=== PATIENT | male | born 1995 | race African-American/Black ===

== ENCOUNTER 2017-10-31 17:29 | Emergency (ER) | payer MEDICAID ==
[~2017-10-31] VITALS: Ht 170.2 cm; Wt 70.3 kg
[~2017-10-31 17:29] MED LIST: ACETAMINOPHEN-1 EAC1 PO; ALBUTEROL SULF8.5 GM INH; AMOXICILLI200 MG/5 M PO; AMOXICILLIN500 MG ORAL; AUGMENTIN 875-1 EAC1 ORAL; AZITHROMYCIN250 MG ORAL; CONCERTA18 MG PO; IBUPROFEN600 MG ORAL; IBUPROFEN800 M1 PO; IBUPROFEN800 MG PO; KEFLEX500 MG ORAL; KEFLEX500 MG PO; NKM; PROMETHAZINE-D118 ML ORAL
[2017-10-31 17:38] VITALS: BP 121/71
--- NOTE | 2017-10-31 17:58 | Emergency Room Report ---
History of Present Illness General Chief Complaint: Upper Respiratory Illness Source: Patient Present Illness HPI 22-year-old male presents emergency department complaining of intermittent dry cough with some wheezes since yesterday. Patient reports history of bronchitis usually with changes of season. Patient states that he lost his inhaler. Patient denies fevers, chills, sputum production, sore throat, neck stiffness or neck pain. Allergies: Coded Allergies: No Known Allergies (Unverified , 07/22/12) Patient History Past Medical History: see triage record Past Surgical History: none Pertinent Family History: none Immunizations: UTD Reviewed Nursing Documentation: PMH: Agreed; PSxH: Agreed Nursing Documentation-PMH Past Medical History: No Stated History Hx Neurological Problems: No Review of Systems All Other Systems: negative except mentioned in HPI Physical Exam Vital Signs Date Time Temp Pulse Resp B/P (MAP) Pulse Ox O2 Delivery O2 Flow Rate FiO2 10/31/17 17:34 98.7 68 20 121/71 98 Room Air 98.8 Sp02 EP Interpretation: reviewed, normal General Appearance: no apparent distress, alert, GCS 15, non-toxic Head: normocephalic, atraumatic Eyes: bilateral eye normal inspection, bilateral eye PERRL ENT: hearing grossly normal, normal voice Neck: full range of motion Respiratory: chest non-tender, lungs clear, normal breath sounds, no wheezing, speaking full sentences Cardiovascular #1: regular rate, rhythm, normal capillary refill Musculoskeletal: back normal, gait/station normal, normal range of motion, non- tender Neurologic: alert, oriented x3, responsive, motor strength/tone normal, sensory intact, speech normal, grossly normal Psychiatric: judgement/insight normal Skin: normal color, no rash, warm/dry, well hydrated Lymphatic: no adenopathy Medical Decision Making PA Attestation Dr. douglas is my supervising Physician whom patient management has been discussed with. Diagnostic Impression: Primary Impression: Acute bronchiolitis, unspecified ER Course 22-year-old male presents emergency department complaining of intermittent dry cough with some wheezes since yesterday. Patient reports history of bronchitis usually with changes of season. Patient states that he lost his inhaler. Patient denies fevers, chills, sputum production, sore throat, neck stiffness or neck pain. Ddx considered but are not limited to URI, pneumonia, PE, strep pharyngitis, meningitis. Vital signs: Pt.is afebrile VS are WNL H&PE are most consistent with bronchitis ORDERS: none required at this time, the diagnosis is clinical ED INTERVENTIONS: None required at this time. DISCHARGE: At this time pt. is stable for d/c to home. Will provide printed patient care instructions, and any necessary prescriptions. Care plan and follow up instructions have been discussed with the patient prior to discharge. Last Vital Signs Date Time Temp Pulse Resp B/P (MAP) Pulse Ox O2 Delivery O2 Flow Rate FiO2 10/31/17 17:38 98.8 68 20 121/71 98 Room Air 98.8 Disposition: HOME, SELF-CARE Condition: Stable Scripts Cetirizine Hcl* (ZYRTEC*) 10 Mg Tablet 10 MG ORAL DAILY for 30 Days, #30 TAB 0 Refills Prov: Clary Shaw 10/31/17 Albuterol Sulfate* (ALBUTEROL SULFATE MDI*) 8.5 Gm Hfa.aer.ad 2 PUFF INH Q4H, #1 INH 2 Refills Prov: Clary Shaw 10/31/17 Patient Instructions: Acute Bronchitis, [id number] Additional Instructions: Take medications as directed. Follow up with a Primary Care Provider in 3-5 days, even if your symptoms have resolved. --Please review list of primary care clinics, if you do not already have a primary care provider Return sooner to ED if new symptoms occur, or current symptoms become worse. - Please note that this Emergency Department Report was dictated using [employer] sheeter technology software, occasionally this can lead to erroneous entry secondary to interpretation by the dictation equipment. Clary Shaw Oct 31, 2017 17:58
[2017-10-31] MEDS ORDERED: ZYRTEC10 MG ORAL (17:59)
[2017-10-31] MEDS ORDERED: ALBUTEROL SULF8.5 GM INH (17:59)
[2017-10-31 18:16] VITALS: BP 121/71
== END 2017-10-31 18:17 | disposition home or self-care (01) ==
LOC: EMR 18:00
DX: J21.9 Acute bronchiolitis, unspecified (principal)
CPT/HCPCS: 99284

== ENCOUNTER 2017-11-19 18:08 | Emergency (ER) | payer MEDICAID ==
[~2017-11-19] VITALS: Ht 170.2 cm; Wt 68.0 kg
[~2017-11-19 18:08] MED LIST changes: +ZYRTEC10 MG ORAL
[2017-11-19 18:57] VITALS: BP 114/72
[2017-11-19] MEDS ORDERED: Bacitracin Oint UD TOPIC ONE ×2 (19:52→20:00)
--- NOTE | 2017-11-19 19:57 | Emergency Room Report ---
History of Present Illness General Chief Complaint: Wound Recheck/Suture Removal Source: Patient Present Illness HPI 22 YO Male presents to the ED c/o sutures that need to be removed from right posterior ear. pt. denies pain. Denies erythema, tenderness, discharge. Patient reports scab formation. Patient denies fevers or chills. Patient is up -to-date with tetanus vaccination. Allergies: Coded Allergies: No Known Allergies (Unverified , 07/22/12) Patient History Past Medical History: see triage record Past Surgical History: none Pertinent Family History: none Immunizations: UTD Reviewed Nursing Documentation: PMH: Agreed; PSxH: Agreed Nursing Documentation-PMH Past Medical History: No Stated History Hx Neurological Problems: No Review of Systems All Other Systems: negative except mentioned in HPI Physical Exam Vital Signs Date Time Temp Pulse Resp B/P (MAP) Pulse Ox O2 Delivery O2 Flow Rate FiO2 11/19/17 18:28 98.2 65 18 114/72 97 Room Air 98.2 Sp02 EP Interpretation: reviewed, normal General Appearance: no apparent distress, alert, GCS 15, non-toxic Head: normocephalic, atraumatic ENT: hearing grossly normal, normal voice, other - healing laceration of the posterior right ear - moderate scabbing noted over sutures, no erythema and no discharge no evidence of infection Respiratory: lungs clear, normal breath sounds, speaking full sentences Cardiovascular #1: regular rate, rhythm Musculoskeletal: back normal, gait/station normal, normal range of motion Neurologic: alert, oriented x3, responsive, motor strength/tone normal, sensory intact, normal gait, speech normal, grossly normal Psychiatric: judgement/insight normal Skin: normal color, no rash, warm/dry, well hydrated, wd healing/no infection noted - healing laceration of the posterior right ear - moderate scabbing noted over sutures, no erythema and no discharge no evidence of infection Lymphatic: no adenopathy Medical Decision Making PA Attestation Dr Hannon is my supervising Physician whom patient management has been discussed with. Diagnostic Impression: Primary Impression: Encounter for removal of sutures Additional Impressions: Encounter for wound re-check Wound healing, delayed ER Course 22 YO Male presents to the ED c/o sutures that need to be removed from right posterior ear. pt. denies pain. Denies erythema, tenderness, discharge. Patient reports scab formation. Patient denies fevers or chills. Patient is up -to-date with tetanus vaccination. Ddx considered but are not limited to laceration, tendon injury, cellulitis, dehiscence. Vital signs: are WNL, pt. is afebrile H&PE are most consistent with: healing laceration of the posterior right ear - moderate scabbing noted over sutures, no erythema and no discharge no evidence of infection. ORDERS: none required at this time, the diagnosis is clinical ED INTERVENTIONS: - 3 Sutures removed. The middle Portion of the laceration seems to still be healing and therefore I felt it was best to leave the sutures in for a few more days. I instructed patient to apply bacitracin once daily and to return in about 3-5 days for evaluation and possibly removing the remaining sutures. DISCHARGE: At this time pt. is stable for d/c to home. Will provide printed patient care instructions, and any necessary prescriptions. Care plan and follow up instructions have been discussed with the patient prior to discharge. Last Vital Signs Date Time Temp Pulse Resp B/P (MAP) Pulse Ox O2 Delivery O2 Flow Rate FiO2 11/19/17 18:57 98.2 78 18 114/72 97 Room Air 98.2 Disposition: HOME, SELF-CARE Condition: Stable Scripts Bacitracin/Polymyxin B Sulfate (BACITRACIN-POLYMYXIN OINTMENT) 28.35 Gm Oint...g. 1 APPLIC TP BID, #28.3 GM Prov: Clary Shaw 11/19/17 Patient Instructions: Wound Check Additional Instructions: Take medications as directed. Return in 3-5 days for re-check and possible removal of remaining sutures. Follow up with a Primary Care Provider in 3-5 days, even if your symptoms have resolved. --Please review list of primary care clinics, if you do not already have a primary care provider Return sooner to ED if new symptoms occur, or current symptoms become worse. - Please note that this Emergency Department Report was dictated using [employer] therapist technology software, occasionally this can lead to erroneous entry secondary to interpretation by the dictation equipment. Clary Shaw Nov 19, 2017 19:57
[2017-11-19] MEDS ORDERED: BACITRACIN-P28.35 GM TP (20:03)
[2017-11-19 20:08] VITALS: BP 0/0
== END 2017-11-19 20:08 | disposition home or self-care (01) ==
LOC: EMR 19:00
DX: S01.311D Laceration without foreign body of right ear, subsequent encounter (principal); Z48.02 Encounter for removal of sutures
CPT/HCPCS: 99283

== ENCOUNTER 2018-01-08 06:40 | Emergency (ER) | payer MEDICAID ==
[~2018-01-08] VITALS: Ht 170.2 cm; Wt 68.0 kg
[~2018-01-08 06:40] MED LIST changes: +BACITRACIN-P28.35 GM TP
[2018-01-08] MEDS ORDERED: Sodium Chloride 500ML 500 ML IV ONE (06:54)
[2018-01-08] MEDS ORDERED: Ketorolac 30mg Inj IV ONE (07:00)
[2018-01-08] MEDS ORDERED: Metoclopramide 10mg/2ml Inj IVP ONE (07:00)
[2018-01-08] MEDS ORDERED: DiphenhydrAMINE 50mg/ml Inj IVP ONE (07:00)
--- NOTE | 2018-01-08 07:02 | Emergency Room Report ---
History of Present Illness General Chief Complaint: Headache Source: Patient Present Illness [facility] Patient break presents with left-sided headache. This started on Sunday when he woke up. It's been constant since that time. He's been able to sleep. He' s taken ibuprofen 600 mg without help. There is no nausea vomiting diarrhea fevers neck stiffness. No sore throat or sinus fullness. Hasn't had headaches like this before. There was no sudden onset. He denies nausea at this time. He is no change in vision. He denies any weakness. There's been no head trauma. He rates the pain 7/10, constant and nonradiating on the left-hand side of his head. The patient's been seen here before for upper respiratory symptomatology. He denies any cough or wheezing at this time. No dysuria or hematuria. No change in bowels. 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 This has not changed for several months. Allergies: Coded Allergies: No Known Allergies (Unverified , 07/22/12) Patient History Past Medical History: see triage record Social History: Denies: smoking, alcohol use, drug use Social History Narrative electrician manager Reviewed Nursing Documentation: PMH: Agreed; PSxH: Agreed Nursing Documentation-PMH Past Medical History: No Stated History Hx Neurological Problems: No Review of Systems All Other Systems: negative except mentioned in HPI Physical Exam Vital Signs Date Time Temp Pulse Resp B/P (MAP) Pulse Ox O2 Delivery O2 Flow Rate FiO2 01/08/18 06:44 97.4 58 16 108/59 97 Room Air 97.3 Sp02 EP Interpretation: reviewed, normal General Appearance: well appearing, no apparent distress, GCS 15 Head: normocephalic Eyes: bilateral eye normal inspection, bilateral eye PERRL, bilateral eye EOMI ENT: moist mucus membranes Neck: supple Respiratory: lungs clear, normal breath sounds Cardiovascular #1: regular rate, rhythm Cardiovascular #2: 2+ radial (R) Gastrointestinal: normal inspection, normal bowel sounds, non tender, no mass, non-distended Musculoskeletal: back normal, gait/station normal, normal range of motion Neurologic: alert, oriented x3, air operations manager III-XII nml as tested, motor strength/tone normal, DTRs symmetric, sensory intact, cerebellar normal, normal gait, speech normal Psychiatric: mood/affect normal Skin: normal inspection, warm/dry Medical Decision Making Diagnostic Impression: Primary Impression: Headache Qualified Codes: R51 - Headache ER Course Patient presents with headache on the left-hand side. Differential includes tension, migraine, viral, sinusitis, carbon monoxide exposure amongst others. He has a nonfocal neurologic exam at this time. CT is not indicated. However labs will be obtained and he will receive Reglan, Benadryl and Toradol. Labs with normal CBC and sed rate. CMP also normal as is urine. Headache is resolved - he states 0/10 pain to me.. He feels anxious and wants to go home. Neurologic exam same = normal. Patient stable for outpatient observation and treatment. Laboratory Tests Test 01/08/18 07:18 White Blood Count 4.6 K/UL (4.8-10.8) L Red Blood Count 5.27 M/UL (4.70-6.10) Hemoglobin 15.5 G/DL (14.2-18.0) Hematocrit 44.2 % (42.0-52.0) Mean Corpuscular Volume 84 FL (80-99) Mean Corpuscular Hemoglobin 29.4 PG (27.0-31.0) Mean Corpuscular Hemoglobin Concent 35.1 G/DL (32.0-36.0) Red Cell Distribution Width 10.7 % (11.6-14.8) L Platelet Count 199 K/UL (150-450) Mean Platelet Volume 7.6 FL (6.5-10.1) Neutrophils (%) (Auto) 44.4 % (45.0-75.0) L Lymphocytes (%) (Auto) 45.8 % (20.0-45.0) H Monocytes (%) (Auto) 7.1 % (1.0-10.0) Eosinophils (%) (Auto) 1.4 % (0.0-3.0) Basophils (%) (Auto) 1.3 % (0.0-2.0) Erythrocyte Sedimentation Rate 1 MM/HR (0-15) Urine Color Pale yellow Urine Appearance Clear Urine pH 5 (4.5-8.0) Urine Specific [place] 1.015 (1.005-1.035) Urine Protein Negative (NEGATIVE) Urine Glucose (UA) Negative (NEGATIVE) Urine Ketones Negative (NEGATIVE) Urine Blood Negative (NEGATIVE) Urine Nitrite Negative (NEGATIVE) Urine Bilirubin Negative (NEGATIVE) Urine Urobilinogen Normal MG/DL (0.0-1.0) Urine Leukocyte Esterase Negative (NEGATIVE) Sodium Level 142 MMOL/L (136-145) Potassium Level 4.0 MMOL/L (3.5-5.1) Chloride Level 106 MMOL/L (98-107) Carbon Dioxide Level 29 MMOL/L (21-32) Anion Gap 7 mmol/L (5-15) Blood Urea Nitrogen 17 mg/dL (7-18) Creatinine 0.9 MG/DL (0.55-1.30) Estimate Glomerular Filtration Rate > 60 mL/min (>60) Glucose Level 98 MG/DL (74-106) Calcium Level 8.7 MG/DL (8.5-10.1) Total Bilirubin 0.5 MG/DL (0.2-1.0) Aspartate Amino Transferase (AST) 16 U/L (15-37) Alanine Aminotransferase (ALT) 22 U/L (12-78) Alkaline Phosphatase 77 U/L (46-116) Total Creatine Kinase 142 U/L (26-308) Total Protein 7.0 G/DL (6.4-8.2) Albumin 3.8 G/DL (3.4-5.0) Globulin 3.2 g/dL Albumin/Globulin Ratio 1.2 (1.0-2.7) Last Vital Signs Date Time Temp Pulse Resp B/P (MAP) Pulse Ox O2 Delivery O2 Flow Rate FiO2 01/08/18 08:06 97.5 54 16 122/83 99 Room Air 97.5 Status: improved Disposition: HOME, SELF-CARE Condition: Improved Duke Mortensen M.D. Jan 08, 2018 07:02
[2018-01-08 07:39] VITALS: BP 117/67
[2018-01-08 07:43] LABS: BASOPHILS % (AUTO) 1.3 % (0.0-2.0); EOSINOPHILS % (AUTO) 1.4 % (0.0-3.0); HEMATOCRIT 44.2 % (42.0-52.0); HEMOGLOBIN 15.5 G/DL (14.2-18.0); LYMPHOCYTES % (AUTO) 45.8 % (20.0-45.0); MEAN CORPUSCULAR VOLUME 84 FL (80-99); MONOCYTES % (AUTO) 7.1 % (1.0-10.0); NEUTROPHILS % (AUTO) 44.4 % (45.0-75.0); PLATELET COUNT 199 K/UL (150-450); RED BLOOD COUNT 5.27 M/UL (4.70-6.10); RED CELL DISTRIBUTION WIDTH 10.7 % (11.6-14.8); WHITE BLOOD COUNT 4.6 K/UL (4.8-10.8)
[2018-01-08 07:45] LABS: ANION GAP 7 mmol/L (5-15); BLOOD UREA NITROGEN 17 mg/dL (7-18); CALCIUM 8.7 MG/DL (8.5-10.1); CARBON DIOXIDE 29 MMOL/L (21-32); CHLORIDE 106 MMOL/L (98-107); CREATININE 0.9 MG/DL (0.55-1.30); SODIUM 142 MMOL/L (136-145)
[2018-01-08 07:46] LABS: APPEARANCE,URINE CLEAR; BILIRUBIN, URINE NEGATIVE (NEGATIVE); COLOR,URINE PALE YELLOW; GLUCOSE, URINE (UA) NEGATIVE (NEGATIVE); KETONES,URINE NEGATIVE (NEGATIVE); LEUKOCYTE ESTERASE ,URINE NEGATIVE (NEGATIVE); NITRITE,URINE NEGATIVE (NEGATIVE); PH,URINE 5 (4.5-8.0); PROTEIN,URINE NEGATIVE (NEGATIVE); UROBILINOGEN,URINE NORMAL MG/DL (0.0-1.0)
[2018-01-08 07:47] VITALS: BP 122/83
[2018-01-08 07:49] LABS: ALANINE AMINOTRANSFERASE 22 U/L (12-78); ALBUMIN 3.8 G/DL (3.4-5.0); ALBUMIN/GLOBULIN RATIO 1.2 (1.0-2.7); ALKALINE PHOSPHATASE 77 U/L (46-116); ASPARTATE AMINO TRANSFERASE 16 U/L (15-37); BILIRUBIN,TOTAL 0.5 MG/DL (0.2-1.0); CREATINE KINASE 142 U/L (26-308)
[2018-01-08 08:06] VITALS: BP 122/83
== END 2018-01-08 08:07 | disposition home or self-care (01) ==
LOC: EMR 06:58
DX: R51 Headache (principal)
CPT/HCPCS: 36415; 80053; 81003; 82550; 85025; 85651; 96374; 96375; 99285; J1200; J1885; J2765; J7040

== ENCOUNTER → 2018-05-16 | Emergency (ER) | payer OTHER, MEDICAID ==
[~2018-05-16] VITALS: Ht 170.2 cm; Wt 68.0 kg
[~2018-05-16] MED LIST changes: +ISENTRESS400 MG ORAL; +TRUVADA 200 MG1 EAC1 ORAL
[2018-05-16 21:15] VITALS: BP 120/72
--- NOTE | 2018-05-16 21:15 | NUR ---
ED Nurse Note: pt c/o flu like s/s for about two days, denies fever. Pt AA&ox4, gcs=15, skin warm and dry, resp even and unlabored, -n/v/d, ambulates w/ steady gait, will continue to monitor.
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
[2018-05-16 21:40] VITALS: BP 119/98
--- NOTE | 2018-05-16 21:44 | NUR ---
ED Nurse Note: Pt discharge instruction provided w/ prescription, id band removed, pt education done via discussion and handout, pt verbalized understanding and agrees with plan, pt advised to follow up with pcp regarding pt's condition, pt advised to return to ed if s/s worsen or new s/s develop. Pt given number to call back ED regarding lab result.
[2018-05-16 21:51] LABS: BASOPHILS % (AUTO) 1.4 % (0.0-2.0); EOSINOPHILS % (AUTO) 0.8 % (0.0-3.0); HEMATOCRIT 41.1 % (42.0-52.0); HEMOGLOBIN 14.2 G/DL (14.2-18.0); LYMPHOCYTES % (AUTO) 34.3 % (20.0-45.0); MEAN CORPUSCULAR VOLUME 85 FL (80-99); MONOCYTES % (AUTO) 6.8 % (1.0-10.0); NEUTROPHILS % (AUTO) 56.8 % (45.0-75.0); PLATELET COUNT 220 K/UL (150-450); RED BLOOD COUNT 4.86 M/UL (4.70-6.10); RED CELL DISTRIBUTION WIDTH 10.5 % (11.6-14.8); WHITE BLOOD COUNT 5.7 K/UL (4.8-10.8)
[2018-05-16 22:00] LABS: ANION GAP 7 mmol/L (5-15); BLOOD UREA NITROGEN 14 mg/dL (7-18); CALCIUM 8.8 MG/DL (8.5-10.1); CARBON DIOXIDE 28 MMOL/L (21-32); CHLORIDE 103 MMOL/L (98-107); CREATININE 1.1 MG/DL (0.55-1.30); POTASSIUM 4.1 MMOL/L (3.5-5.1); SODIUM 138 MMOL/L (136-145)
[2018-05-16 22:04] LABS: ALANINE AMINOTRANSFERASE 22 U/L (12-78); ALBUMIN 4.2 G/DL (3.4-5.0); ALBUMIN/GLOBULIN RATIO 1.4 (1.0-2.7); ALKALINE PHOSPHATASE 72 U/L (46-116); ASPARTATE AMINO TRANSFERASE 19 U/L (15-37); BILIRUBIN,TOTAL 0.4 MG/DL (0.2-1.0)
== END | disposition home or self-care (01) ==
LOC: EMR 21:45
DX: J06.9 Acute upper respiratory infection, unspecified (principal); Z77.21 Contact with and (suspected) exposure to potentially hazardous body fluids
CPT/HCPCS: 36415; 80053; 85025; 86703; 86803; 87517; 99283